=== PATIENT | female | born 1930 | race Caucasian/White ===

== ENCOUNTER 2021-05-02 09:36 | Emergency (ER) | payer MEDICARE, OTHER ==
[~2021-05-02] VITALS: Ht 162.6 cm; Wt 64.0 kg
--- NOTE | 2021-05-02 10:48 | RAD ---
EXAM: CHEST ONE VIEW. HISTORY: Shortness of breath. COMPARISON: None. FINDINGS: A frontal view of the chest is obtained. There are no confluent infiltrates. There is a calcified granuloma in the right upper lobe. There is no pneumothorax or pleural effusion. The heart is not enlarged. There are atherosclerotic calcificati ons of the aorta. Cholecystectomy clips are noted. Irregularity of the right humeral head is consistent with avascular necrosis with articular surface c ollapse. IMPRESSION: 1. No confluent infiltrates. 2. 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 Electronically signed by: Anneliese Mazariegos MD (05/02/2021 10:46 AM) [id number]
--- NOTE | 2021-05-02 10:54 | PHYS DOC ---
Past History Past Surgical History: Appendectomy, Cholecystectomy, Hip Replacement, Knee Replacement Alcohol Use: None Adult General Chief Complaint Chief Complaint: LOWER EXTREMITY SWELLING [place] [facility] [employer] [facility] HPI . Patient is a 82-year-old female patient presents with bilateral leg swelling for past several months. Patient reports she has seen her primary care provider, had been given some Lasix, with no improvement. States she had seen her primary care again, was given Lasix again, as a double dose, however she does not report she has noticed any difference in her swelling. States she has been told she has abnormal kidney functioning, states she had not noticed any increased urination when he started take Lasix. States her legs do seem a little bit less swollen today, as they are less weepy today as compared to that with him in the last couple days. Denies any lesions. Denies any leg pain. Does reports a little increased shortness of breath and some chest pressure started last night. Denies any current chest pain. Also reports she has not been sleeping very well, states her breathing does feel normal when she is trying to sleep, she just has not been able to sleep because of the swelling and discomfort in her legs. States primary care had recently diagnosed her with E. coli in her urine, however she had not been started on any antibiotics, as she has not had any symptoms. States she has no increased urination, states no burning with urination. Denies any urinary complaints at this time Review of Systems Review of Systems Constitutional: Denies fever or chills [] Eyes: Denies change in visual acuity, redness, or eye pain [] HENT: Denies nasal congestion or sore throat [] does report she has occasional postnasal drip Respiratory: Denies cough or shortness of breath [] reports she has occasional cough related to her postnasal drip Cardiovascular: No additional information not addressed in HPI [] states she had some chest pressure last night denies any at this time GI: Denies abdominal pain, nausea, vomiting, bloody stools or diarrhea [] states her stools are usually soft as she takes stool softeners and laxatives because of taking pain medications each day : Denies dysuria or hematuria [] Musculoskeletal: Denies back pain or joint pain [] Integument: Denies rash or skin lesions [] Neurologic: Denies headache, focal weakness or sensory changes [] Endocrine: Denies polyuria or polydipsia [] All other systems were reviewed and found to be within normal limits, except as documented in this note. Allergies Allergies Allergies Coded Allergies Type Severity Reaction Last Updated Verified povidone-iodine Allergy Unknown 05/02/21 Yes ropinirole Allergy Unknown 05/02/21 Yes Physical Exam Physical Exam Constitutional: Well developed, well nourished, no acute distress, non-toxic appearance. [] HENT: Normocephalic, atraumatic, bilateral external ears normal, oropharynx moist, no oral exudates, nose normal. [] Eyes: PERRLA, EOMI, conjunctiva normal, no discharge. [] Neck: Normal range of motion, no tenderness, supple, no stridor. [] Cardiovascular:Heart rate regular rhythm, no murmur [] Lungs & Thorax: Bilateral breath sounds clear to auscultation [] Abdomen: Bowel sounds normal, soft, no tenderness, no masses, no pulsatile masses. [] Skin: Warm, dry, no erythema, no rash. [] Back: No tenderness, no CVA tenderness. [] Extremities: No tenderness, no cyanosis, no clubbing, ROM intact,. [] 2+ edema to lower extremities, from the calf down to feet. Capillary refill brisk bilaterally. No lesions noted. Negative Homans' sign. No oozing or weeping noted to lower extremities. Neurologic: Alert and oriented X 3, normal motor function, normal sensory function, no focal deficits noted. [] Psychologic: Affect normal, judgement normal, mood normal. [] Current Patient Data Vital Signs Vital Signs Date Time Temp Pulse Resp B/P (MAP) Pulse Ox O2 Delivery O2 Flow Rate FiO2 05/02/21 10:05 98.6 63 18 168/69 97 Room Air EKG EKG []Normal sinus rhythm. no ST changes per Dr Steen. normal axis,. normal intervals Radiology/Procedures Radiology/Procedures []PROCEDURE: CHEST AP ONLY Exam: Chest one view INDICATION: Arm, neck pain, nausea TECHNIQUE: Frontal view of the chest Comparisons: 09/06/2019 FINDINGS: The cardiomediastinal silhouette and pulmonary vessels are within normal limits. The lung and pleural spaces are clear. IMPRESSION: No acute cardiopulmonary process. Electronically signed by: Laurie Rivera MD (05/01/2021 9:37 PM) [facility] DICTATED AND SIGNED BY: LAURIE RIVERA MD DATE: 05/01/212135 CC: JERMAINE FLOREZ MD; EMERGENCY,DEPARTMENT; PELON MAE FORGING DIES FINAL FINISHER ~MTH0 0 Heart Score C/O Chest Pain: Yes HEART Score for Chest Pain: HEART Score for Chest Pain Response (Comments) Value History Slighlty/Non-Suspicious 0 ECG Normal 0 Age > 65 2 Risk Factors 1 or 2 Risk Factors 1 Troponin < Normal Limit 0 Total 3 Risk Factors: Risk Factors: DM, Current or recent (<one month) smoker, HTN, HLP, family history of CAD, obesity. Risk Scores: Risk Factors: DM, Current or recent (<one month) smoker, HTN, HLP, family history of CAD, obesity. Course & Med Decision Making Course & Med Decision Making Pertinent Labs and Imaging studies reviewed. (See chart for details) [] Consideration for CHF, hypoalbuminemia, UTI, DVT, renal issues. Low risk of DVT with bilateral swelling, negative Homans' sign, negative history of prior DVT, likely swelling related to cardiac cause or less. Reviewed X ray with right humeral head findings, patient reports no recent trauma, she has had pain for over a y ear in that shoulder. Her PCP has told her it's just arthritis. She is able to move her shoulder appropriately, with some discomfort. Will refer to Ortho for follow up Discussed findings with patient, noting urinary tract infection. Will treat. Patient remains asymptomatic, she did have a recent diagnosis UTI which was not treated, continue to show nitrates, bacteria, leukocytes, with elevated white blood cell count today. When patient continue to take her diuretics from her primary care, as she does report her swelling has improved today. With patient discussed her shoulder with orthopedics as needed. Dragon Disclaimer Dragon Disclaimer This electronic medical record was generated, in whole or in part, using a voice recognition dictation system. Departure Departure: Impression: Primary Impression: Urinary tract infection Additional Impression: Pedal edema Disposition: HOME / SELF CARE / HOMELESS Condition: STABLE Referrals: MONIK HOFF MD (PCP) DA BEGUM MD Patient Instructions: Urinary Tract Infection Additional Instructions: As we discussed, take the antibiotic for the entire duration it is prescribed. Follow-up with your primary care provider about your swelling in your legs. Try to follow-up with orthopedic clinic, Dr. Begum, regarding your right shoulder, to determine if they are concerned over the x-ray findings of your right shoulder. Call their office and try to get in in the next 1 to 2 weeks for this. Scripts Sulfamethoxazole/Trimethoprim (BACTRIM DS TABLET) 1 Each Tablet 1 TAB PO BID for Urinary Tract Infection for 7 Days, #14 TAB 0 Refills Prov: TUCKER HOYT APRN 05/02/21 Problem Qualifiers Primary Impression: Urinary tract infection Urinary tract infection type: acute cystitis Hematuria presence: without hematuria Qualified Codes: N30.00 - Acute cystitis without hematuria TUCKER HOYT APRN May 02, 2021 10:54
[2021-05-02 11:19] LABS: BASO # 0.1 x10^3/uL (0.0-0.2); BASO % 1 % (0-3); EOS # 0.1 x10^3/uL (0.0-0.7); EOS % 0 % (0-3); HEMATOCRIT 40.5 % (36.0-47.0); HEMOGLOBIN 13.5 g/dL (12.0-15.5); LYMPH # 5.3 x10^3/uL (1.0-4.8); LYMPH % 36 % (24-48); MEAN CORPUSCULAR HEMOGLOBIN 31 pg (25-35); MEAN CORPUSCULAR HGB CONC 33 g/dL (31-37); MEAN CORPUSCULAR VOLUME 93 fL (79-100); MONO # 0.7 x10^3/uL (0.0-1.1); MONO % 5 % (0-9); NEUT # 8.4 x10^3uL (1.8-7.7); NEUT % 58 % (31-73); PLATELET COUNT 164 x10^3/uL (140-400); RED BLOOD COUNT 4.36 x10^6/uL (3.50-5.40); WHITE BLOOD COUNT 14.5 x10^3/uL (4.0-11.0)
[2021-05-02 11:27] LABS: CALCIUM 9.9 mg/dL (8.5-10.1); CREATININE 1.5 mg/dL (0.6-1.0); GFR 32.8; POTASSIUM 4.6 mmol/L (3.5-5.1)
--- NOTE | 2021-05-02 11:28 | EKG ---
[address] [address] Test Date: 2021-05-02 Test Time: 10:44:58 Pat Name: VINEET CAPELLAN Department: Room: Gender: F Installations Inspector: CHITO : [id number] Requested By: TUCKER HOYT Order Number: [id number] Reading MD: Measurements Intervals Steger Rate: 62 P: CT: QRS: 18 QRSD: 68 T: 53 QT: 408 QTc: 416 Interpretive Statements IRREGULAR RHYTHM, NO P-WAVE FOUND OTHERWISE NORMAL ECG RI6.02 No previous ECG available for comparison
[2021-05-02 11:40] LABS: ALBUMIN 3.8 g/dL (3.4-5.0); ALBUMIN/GLOBULIN RATIO 1.3 (1.0-1.7); TOTAL BILIRUBIN 0.4 mg/dL (0.2-1.0); TOTAL PROTEIN 6.7 g/dL (6.4-8.2)
[2021-05-02 13:07] LABS: BACTERIA,URINE MANY /HPF (0-FEW); BILIRUBIN,URINE NEG (NEG); CLARITY,URINE HAZY; COLOR,URINE YELLOW; GLUCOSE,URINE NEG (NEG); NITRITE,URINE POS (NEG); RBC,URINE OCC /HPF (0-2); SQUAMOUS EPITHELIAL CELL,UR FEW /LPF; UROBILINOGEN,URINE 0.2 mg/dL (0.2 mg/dL); WBC,URINE >40 /HPF (0-4)
[2021-05-02] MEDS ORDERED: SULF1TAB24 PO (13:30)
[2021-05-02 13:40] VITALS: BP 143/55
== END 2021-05-02 13:54 | disposition home or self-care (01) ==
LOC: ER 09:36
DX: N30.00 Acute cystitis without hematuria (principal); R60.0 Localized edema; Z88.8 Allergy status to other drugs, medicaments and biological substances
CPT/HCPCS: 36415; 71045; 80053; 81001; 82550; 83880; 84484; 85025; 87086; 93005; 99285

== ENCOUNTER → 2021-06-19 | Outpatient (CLI) | payer MEDICARE, OTHER ==
[~2021-06-19] MED LIST: SULF1TAB24 PO
--- NOTE | 2021-06-19 18:57 | RAD ---
EXAM: XR LUMBAR SPINE 2-3V, XR BILATERAL HIP (WITH OR WITHOUT PELVIS) LEFT 2 VIEWS, XR SACRUM AND CO CCYX 2+VIEWS, XR KNEE _3 VIEWS_LT 06/19/2021 11:29 AM CLINICAL INDICATION: Fall, low back pain, left hip, tailbone, knee COMPARISON: None FINDINGS: Lumbar spine: 3 views were obtained. The bones are diffusely demineralized. There are 5 nonrib-bearin g lumbar vertebral bodies. There is a T12 compression fracture with 40 percent vertebral body height loss and a L1 compression fracture with 30 percent vertebral body height loss. No retropulsion of cor katherine seen by radiograph. These are age indeterminate. There is 8 mm anterolisthesis of L3 on L4 and 9 mm anterolisthesis of L4 on L5. Thoracolumbar scoliosis. There is 3-6 narrowing at L3-L4 through L5-S 1 with endplate sclerosis. Severe multilevel facet arthrosis. Spinal stimulator leads project over th e thoracic spine. There are calcifications in the abdominal aorta. Sacrum and coccyx: No definite fracture of the sacrum and coccyx. Sacral joints are unremarkable. Left hip: There is a cephalomedullary nail traversing an old femoral fracture. The femoral head compo nent of the cephalomedullary nail is somewhat medialized but does not extend through the cortex and h as no surrounding lucency. No periprosthetic fracture. Moderate degenerative joint disease of the lef t hip with osteophyte and subchondral cystic changes, mild joint space narrowing. Pelvis: No acute fracture. Left proximal femoral hardware and degenerative joint disease as above. Th ere is mild joint space narrowing with osteophytes and subchondral cysts in the right hip. Lumbar deg enerative joint disease of the above. Left knee: There is a left total knee prosthesis in expected alignment. No periprosthetic lucency or fracture. Small joint effusion. No soft tissue abnormality. IMPRESSION: 1. T12 and L1 compression fractures with up to 40 percent vertebral body height loss. No definite ret ropulsion of cortex. These are age indeterminate and could be acute. 2. No definite acute fracture of the sacrum, coccyx, pelvis, left hip, or left knee. 3. 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 4. 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 5. 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 Electronically signed by: Alem Ashley MD (06/19/2021 6:54 PM) [id number]
== END ==
LOC: RAD 11:23
PROVIDERS: ATTEND Family Medicine
DX: M16.0 Bilateral primary osteoarthritis of hip (principal); M51.36 Other intervertebral disc degeneration, lumbar region; M48.55XA Collapsed vertebra, not elsewhere classified, thoracolumbar region, initial encounter for fracture; M43.16 Spondylolisthesis, lumbar region; M41.86 Other forms of scoliosis, lumbar region; M25.851 Other specified joint disorders, right hip; M25.751 Osteophyte, right hip
CPT/HCPCS: 72100; 72220; 73502; 73562

== ENCOUNTER → 2021-07-25 | Day surgery (SDC) | payer MEDICARE, OTHER ==
[~2021-07-25] MED LIST changes: +0.9 % SODIUM CHLORIDE 10 ML VIAL. ONE; +DEXAMETHASONE SOD PHOS 10 MG/ML VIAL. ONE; +IOHEXOL 300 MG/ML 50 ML VIAL. ONE; +LIDOCAINE 1% PF 30 ML VIAL. ONE
[2021-07-25 14:25] VITALS: BP 197/75
== END | disposition home or self-care (01) ==
LOC: SURG 12:53
PROVIDERS: ATTEND Anesthesiology
DX: M47.26 Other spondylosis with radiculopathy, lumbar region (principal); M79.18 Myalgia, other site; I10 Essential (primary) hypertension; M54.50 Low back pain, unspecified; Z79.899 Other long term (current) drug therapy; Z88.8 Allergy status to other drugs, medicaments and biological substances
CPT/HCPCS: 62323; J1100; Q9967

== ENCOUNTER → 2021-08-08 | Day surgery (SDC) | payer MEDICARE, OTHER ==
[~2021-08-08] MED LIST changes: -0.9 % SODIUM CHLORIDE 10 ML VIAL. ONE; -DEXAMETHASONE SOD PHOS 10 MG/ML VIAL. ONE; -IOHEXOL 300 MG/ML 50 ML VIAL. ONE; -LIDOCAINE 1% PF 30 ML VIAL. ONE
[2021-08-08 14:16] VITALS: BP 159/70
== END | disposition home or self-care (01) ==
LOC: SURG 14:04
PROVIDERS: ATTEND Anesthesiology
DX: M79.18 Myalgia, other site (principal); M47.26 Other spondylosis with radiculopathy, lumbar region; I10 Essential (primary) hypertension; Z87.81 Personal history of (healed) traumatic fracture; Z79.899 Other long term (current) drug therapy; Z98.890 Other specified postprocedural states; Z91.041 Radiographic dye allergy status; Z88.8 Allergy status to other drugs, medicaments and biological substances
CPT/HCPCS: 99214; G0463